=== PATIENT | male | born 1975 | race Caucasian/White ===

== ENCOUNTER → 2024-10-09 | Outpatient (CLI) | payer OTHER, SELFPAY ==
--- NOTE | 2024-10-09 14:45 | XR_ITS ---
Examination: Abdomen sonogram, Limited Date and time of exam: October 09, 2024 at 1444 hours INDICATIONS: Diagnosis and history umbilical hernia Technique: Real-time wilks scale transabdominal sonographic images of the upper abdomen obtained. Findings: Umbilical hernia 3.1 x 4.7 x 5.5 cm IMPRESSION: Umbilical hernia as above
== END | disposition home or self-care (01) ==
LOC: CDIM 14:09
PROVIDERS: PCP Family Medicine; Referring Provider Nurse Practitioner Family; Visit Provider Nurse Practitioner Family
DX: K42.9 Umbilical hernia without obstruction or gangrene (principal)
CPT/HCPCS: 76705